=== PATIENT | male | born 1990 | race Caucasian/White ===

== ENCOUNTER 2024-12-05 01:38 | Emergency (ER) | payer SELFPAY ==
[2024-12-05] VITALS (10 sets, daily range): BP systolic 107–157; BP diastolic 52–78; PULSE 57–69; RESP 12–20; TEMP 36.9; O2SAT 95–100; BMI 33.7
[2024-12-05] MEDS: ONDANSETRON 4 MG/2 ML INJ IV (02:04)
--- NOTE | 2024-12-05 02:04 | ED.MALEGU ---
HPI - Male Genitourinary General Chief complaint: Urogenital-Male Stated complaint: Kidney pain x4days Time Seen by Provider: 12/05/24 01:44 Source: patient Mode of arrival: Ambulatory History of Present Illness HPI Narrative: 34-year-old gentleman presents with a left flank pain radiating to left lower quadrant tonight along with nausea but no vomiting diarrhea hematuria chest pain shortness breath cough runny nose sore throat or any history of kidney stone. He did smoke marijuana earlier but has not taken anything else for the pain. He had a bowel movement yesterday and last ate roast beef sandwich. Other than what is stated 14 point review of system is negative Related Data Previous Rx's Medication Instructions Recorded dicyclomine 20 mg tablet 20 mg PO TID #30 tabs 12/05/24 Allergies Allergy/AdvReac Type Severity Reaction Status Date / Time No Known Drug Allergies Allergy Verified 12/05/24 02:39 Review of Systems Review of Systems ROS Unobtainable: All systems reviewed & are unremarkable except as noted in HPI and below Patient History Smoking Status: Current every day smoker Exam Narrative Exam Narrative: GENERAL: [34 and cough] year old patient appears stated age. Well-developed patient, in mild distress. HEAD: Atraumatic. Normocephalic. EYES: Pupils equal round and reactive. Extraocular motions intact. No scleral icterus. No injection or drainage. ENT: Nose without bleeding, purulent drainage. Throat without erythema, tonsillar hypertrophy or exudate. Airway patent. NECK: Trachea midline. Non tender CARDIOVASCULAR: Regular rate and rhythm without murmurs, gallops, or rubs. RESPIRATORY: Clear to auscultation. Breath sounds equal bilaterally. No wheezes, rales, or rhonchi. GASTROINTESTINAL: Abdomen soft, non-tender, nondistended. EXTREMITIES: No edema or joint tenderness. BACK: Nontender without deformity or crepitance. No flank tenderness. NEURO: AOx3. SKIN: No rash or erythema of visible areas Initial Vital Signs Initial Vital Signs: Vital Signs Temperature 98.4 F 12/05/24 01:49 Pulse Rate 65 12/05/24 01:49 Respiratory Rate 20 12/05/24 01:49 Blood Pressure 157/78 H 12/05/24 01:49 Pulse Oximetry 95 12/05/24 01:49 Oxygen Delivery Method Room Air 12/05/24 01:49 Course Orders Ordered: Discontinued Medications Ondansetron HCl (Ondansetron 4 Mg/2 Ml Inj) 4 mg IV NOW ONE Stop: 12/05/24 01:57 Last Admin: 12/05/24 02:04 Dose: 4 mg Documented By: ANA Vital Signs Vital signs: Vital Signs - 8 hr 12/05/24 01:49 Temperature 98.4 F Pulse Rate 65 Respiratory Rate 20 Blood Pressure 157/78 H Pulse Oximetry 95 Oxygen Delivery Method Room Air MDM - Male Genitourinary Lab Data Labs: Urine Dip Bedside Urine Glucose Negative Bedside Urine Bilirubin - Negative Bedside Urine Ketone - Negative Urine Specific [place] 1.030 Bedside Urine Occult Blood - Negative Bedside Urine pH 6.0 Bedside Urine Protein - Negative Bedside Urine Urobilinogen - Negative Bedside Urine Nitrite - Negative Bedside Urine Leukocytes - Negative Esterase MDM Narrative Medical decision making narrative: All lab work, vital signs, nurse triage note, medication list, previous ER visits and all imaging studies reviewed. CT scan showed no evidence of colitis diverticulitis bowel obstruction obstructive uropathy or acute appendicitis. No white count LFTs are normal and lipase is normal. Differential diagnosis includes kidney stone kidney abscess diverticulitis constipation appendicitis cholecystitis GERD irritable bowel syndrome Crohn's disease ulcerative colitis. Clear liquid diet advance as tolerated. Discharge Plan Departure Patient Disposition: Home Clinical Impression: Abdominal pain, acute, left lower quadrant Instructions: DI for Abdominal Pain-Adult Activity Restrictions/Additional Instructions: Return with new or worsening symptoms. Take medicines as directed. Clear liquid diet advance as tolerated. Prescriptions: New dicyclomine 20 mg tablet 20 mg PO TID Qty: 30 0RF Stand Alone Forms: Patient Portal/API/Survey
--- NOTE | 2024-12-05 02:38 | DI.CT.S_ITS ---
PROCEDURE: CT ABDOMEN PELVIS W CON INDICATIONS: flank pain TECHNIQUE: After the administration of intravenous contrast, axial sections acquired from the lung bases to the pubic symphysis. Coronal and sagittal reformats were performed. For radiation dose reduction, the following was used: automated exposure control, adjustment of mA and/or kV according to patient size. COMPARISON: None. FINDINGS: Image quality: Diagnostic. Lower Chest: No significant findings. ABDOMEN: Liver: No solid mass. Gallbladder: No radiopaque gallstones or wall thickening. Biliary ducts: No biliary dilation. Pancreas: No ductal dilation. Spleen: Size is within normal limits. Adrenal Glands: No adrenal nodules. Kidneys and Ureters: No hydronephrosis. No solid mass. No complex renal cystic lesion which requires follow up. Stomach and Bowel: Normal colonic caliber, without significant wall thickening. No evidence for small bowel obstruction or associated inflammatory changes. Normal appendix. Peritoneum: No abnormal intraperitoneal fluid. No free air. Ventral Wall: No significant ventral hernia. Abdominal Nodes: No retroperitoneal or mesenteric adenopathy by size criteria. Vessels: Aorta and inferior vena cava are normal in size. PELVIS: Pelvic Organs: Unremarkable. Bladder: No bladder wall thickening, accounting for underdistention. Pelvic Nodes: No enlarged lymph nodes. Miscellaneous: No inguinal hernias are seen. Bones: Visualized osseous structures appear intact without acute fracture or focal destructive lesion. No acute compression fractures of the imaged spine. Postoperative changes of lumbar fusion from L2 through L4. IMPRESSION: CT abdomen and pelvis without acute abnormalities to explain patient's symptoms. No evidence for obstructive uropathy. Normal appendix. Other chronic findings as above. No significant discrepancy with the animal husbandry technician radiology preliminary report. Dictated by: Ruiz Grant M.D. on 12/05/2024 at 7:38 Approved by: Ruiz Grant M.D. on 12/05/2024 at 7:42
[2024-12-05] MEDS: SODIUM CHLORIDE 0.9% 1,000 ML 1000 ML IV (02:43)
[2024-12-05] MEDS: HYDROMORPHONE 0.5 MG INJ IV (02:43)
[2024-12-05 02:52] LABS: Alanine Aminotransferase 33 IU/L (<50); Albumin 4.3 g/dL (3.5-5.0); Albumin Globulin Ratio 1.7 (1.0-2.8); Alkaline Phosphatase 44 U/L (38-126); Aspartate Aminotransferase 30 IU/L (17-59); BUN Creatinine Ratio 19.8 (6-22); Bilirubin Total 0.7 mg/dL (0.2-1.3); Blood Urea Nitrogen 17 mg/dL (9-20); Calcium 9.1 mg/dL (8.4-10.2); Carbon Dioxide 24 mmol/L (22-32); Chloride 104 mmol/L (98-107); Estimated Glomerular Filt Rate > 60 mL/min (>60); Globulin 2.5 g/dL (1.7-4.1); Glucose 107 mg/dL (70-99); HEMOLYSIS < 15 (0-50); Lipase 47 U/L (23-300); Potassium 3.9 mmol/L (3.4-5.1); Sodium 135 mmol/L (137-145); Total Protein 6.8 g/dL (6.3-8.2)
[2024-12-05 02:53] LABS: Add Manual Diff / Slide Review NO; Basophils Absolute Auto 0 /uL (0-100); Basophils Percent Auto 0.2 % (0-2); Eosinophils Absolute Auto 100 /uL (0-450); Eosinophils Percent Auto 0.6 % (2-4); Hematocrit 44.2 % (41-53); Hemoglobin 15.5 g/dL (13.5-17.5); Lymphocytes Absolute Auto 1600 /uL (1100-4500); Lymphocytes Percent Auto 14.6 % (25-40); Mean Corpuscular Hemoglobin 29.1 PG (26-34); Mean Corpuscular Volume 83.3 fL (80-100); Monocytes Absolute Auto 700 /uL (0-900); Monocytes Percent Auto 6.2 % (3-14); Neutrophils Absolute Auto 8500 /uL (1500-7000); Neutrophils Percent Auto 78.4 % (50-75); Platelet Count 225 X10^3/uL (150-400); Red Blood Cell Count 5.31 X10^6/uL (4.5-5.9); Red Cell Distribution Width 13.6 % (11.6-14.8); White Blood Cell Count 10.9 X10^3/uL (4.5-11.0)
== END 2024-12-05 04:17 | disposition home or self-care (01) ==
PROVIDERS: Emergency Provider Family Medicine
DX: R10.32 Left lower quadrant pain (principal); F12.90 Cannabis use, unspecified, uncomplicated
CPT/HCPCS: 36415; 74177; 80053; 81003; 83690; 85025; 96361; 96374; 96375; 99284; J1171; J2405; Q9967